=== PATIENT | male | born 1965 | race Caucasian/White ===

== ENCOUNTER 2017-10-07 06:52 | Emergency (ER) | payer OTHER ==
[2017-10-07 07:06] VITALS: BP 155/95; PULSE 86; TEMP 99.1; BMI 40.6
--- NOTE | 2017-10-07 07:21 | PDOC ---
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 PT presents to the ER stating that he has left arm tingling, warmth He went to bed last night at midnight, he awoke at 3am. When he woke up, his left arm was hanging off the bed and he noted left arm tingling He didn't want to leave the house immediately but monitored the tingling/ burning Although his symptoms have improved substantially, he still does note left arm sensory changes He has noted no weakness, no facial asymmetry, no slurring of his speech, no extremity weakness, no uncoordination, PMH: Hypertension CVA 2001(he was told that it was a "bleed") PSH: Tonsillectomy, Adenoidectomy Hernia repair Meds: Amlodipine Besylate [Norvasc] mg PO DAILY Amoxicillin - [Amoxil] 875 mg PO BID Metoprolol Succinate [Toprol XL] mg PO DAILY Oxycodone HCl/Acetaminophen [Percocet 5/325 -] 1 combo PO Q6H PRN #10 tablet Prednisone [Deltasone] mg PO DAILY Valsartan [Diovan] mg PO DAILY ALL: NKDA Social: denies tobacco use, drug use PMD: Dr Forde ROS: GENERAL/CONSTITUTIONAL: No: fever, chills, weakness, loss of appetite. HEAD, EYES, EARS, NOSE AND THROAT: No: change in vision, ear pain, discharge, sore throat, throat swelling. CARDIOVASCULAR: No: chest pain, lightheadedness, palpitations, syncope RESPIRATORY: No: cough, shortness of breath, wheezing, hemoptysis, stridor. GASTROINTESTINAL: No: nausea, vomiting, diarrhea, abdominal cramping, rectal bleeding, constipation. GENITOURINARY: No: dysuria, hematuria, frequency, urgency, flank pain. MUSCULOSKELETAL: No: back pain, neck pain, joint pain, muscle swelling or pain SKIN: No: lesions, pallor, rash or easy bruising. NEUROLOGIC: Yes: paresthesias left arm No: headache, vertigo, weakness ENDOCRINE: No: unexplained weight gain or loss HEMATOLOGIC/LYMPHATIC: No: anemia, easy bleeding, swelling nodes. PE: GENERAL: The patient is in no acute distress. HEAD: Normal with no signs of trauma. EYES: PERRLA, EOMI, sclera anicteric, conjunctiva clear. ENT: Ears normal, nares patent, oropharynx clear without exudates. Moist mucous membranes. NECK: Normal range of motion, supple without lymphadenopathy, JVD, or masses. LUNGS: Breath sounds equal, clear to auscultation bilaterally. No wheezes, and no crackles. HEART:Regular rate and rhythm, normal S1 and S2 without murmur, rub or gallop. ABDOMEN: Soft, nontender, normoactive bowel sounds. No guarding, no rebound. No masses palpable. EXTREMITIES: Normal range of motion, no edema. NEUROLOGICAL: Please see NIHSS MUSCULOSKELETAL: Back non-tender to palpation SKIN: Warm, Dry, normal turgor, no rashes or lesions noted. tPA Exclusion checklist 3-4.5h - Time Elapsed Date last known well: 10/07/17 Time last known well: 00:00 Elaspsed time: Day(s) and 9 Hour(s) and 55 Minutes - Thrombolytic Therapy Candidate Is patient eligible for thrombolytic therapy: No - Exclusion Criteria 3-4.5 hr SBP greater than 185 or DBP greater than 110mmHg despite tx: No Recent IC/spinal surgery,head trauma or stroke<3mos.: No Hx IC hemorrhage, IC neoplasm, AV malformation or aneurysm: No Active internal bleeding: No Blding diathesis(low plt ct, inc PTT,INR>1.7 or use of NOAC): No Symptoms suggest subarachnoid hemorrhage: No CT demonstrates multilobar infarct(>1/3 cerebral hemiphere): No Arterial puncture at noncompressible site in previous 7 days: No Blood glucose concentration less than 50mg/dL (2.7mmol/L): No - Relative Exclusion Criteria 3-4.5 hr Life expectancy <1 yr or severe co-morbid illness: No : No Patient/family refused: No Rapid improvement: Yes Stroke severity too mild: Yes Recent acute [place] (w/in previous 3 months): No Seizure at onset with postictal residual neuro impairments: No Major surgery or serious trauma w/in previous 14 days: No Recent GI or hemorrhage (w/in previous 21 days): No - Add'l Relative Exclusion 3-4.5 hr Age > 80: No Hx of both diabetes AND prior ischemic stroke: No Taking an oral anticoagulant regardless of INR: No NIHSS >25: No - Ineligibility reason(s) Reasons No tPA given: Outside of window - delayed arrival NIH Stroke Scale - Last Known Well Date/Time & Onset Date Last Known Well: 10/07/17 Time Last Known Well: 00:00 - Initial Evaluation Level of consciousness: Alert Ask patient the month and their age: Answers both correctly Ask patient to open & close eyes; make fist and let go: Obeys both correctly Best gaze (horizontal eye movement): Normal Visual field testing: No visual field loss Facial paresis (Show teeth/raise eyebrows/close eyes tight): Normal symmetrical movement Motor Function: Left Arm: Normal Motor Function: Right Arm: Normal (extends arm 90 (or 45) degrees for 10 seconds without drift Motor Function: Left Leg: Normal (extends leg 30 degrees for 5 seconds without drift) Motor Function: Right Leg: Normal (extends leg 30 degrees for 5 seconds without drift) Limb Ataxia: No ataxia Sensory(Use pinprick test arms,legs,trunk,face/side to side): Normal Best language (Describe picture, name items, read sentences): No Aphasia Dysarthria (read several words): Normal articulation Extinction and Inattention: No abnormality - Total Score NIH Stroke Scale Score: 0 Past History - Past Medical History Allergies/Adverse Reactions: Allergies Allergy/AdvReac Type Severity Reaction Status Date / Time No Known Allergies Allergy Unverified 05/20/12 17:49 Home Medications: Ambulatory Orders Amlodipine Besylate [Norvasc] 10 mg PO DAILY 05/20/12 Metoprolol Succinate [Toprol XL] 100 mg PO DAILY 05/20/12 Valsartan/Hydrochlorothiazide [Valsartan-Hctz 80-12.5 mg Tab] 1 each PO DAILY CVA: Yes (10 YRS AGO) COPD: No HTN: Yes - Suicide/Smoking/Psychosocial Hx Smoking Status: Yes Smoking History: Former smoker Years of Tobacco Use: 10 Have you smoked in the past 12 months: No Number of Cigarettes Smoked Daily: 20 Information on smoking cessation initiated: No Hx Alcohol Use: No Drug/Substance Use Hx: No Substance Use Type: None Hx Substance Use Treatment: No *Physical Exam - Vital Signs Last Vital Signs Temp Pulse Resp BP Pulse Ox 99.1 F 86 16 155/95 97 10/07/17 07:00 10/07/17 07:00 10/07/17 07:00 10/07/17 07:00 10/07/17 07:00 ED Treatment Course - LABORATORY CBC & Chemistry Diagram: 10/07/17 08:11 10/07/17 08:11 Medical Decision Making - Medical Decision Making 10/07/17 07:54 Mr. Bean is a 52-year-old male with a history of hypertension, obesity who presents emergency department with paresthesias of the left upper extremity. He will with these symptoms, did fine his arm in a hyperextended position. His symptoms have improved over the course of the morning. Patient's concern is because he's had a prior CVA. On examination: Patient is an IHSS is 0. Patient's motor function is normal. Sensation is intact in all extremities No dysdiadochokinesis, no dysmetria. Diagnosis includes but is not limited to: CVA, TIA, upper extremity palsy Will do CT of head given patient's history. Will do labs. Will contact Neurology consult 10/07/17 07:57 EKG: SR rate of 75 bpm, axis nml, no t elevations or depressions, t waves biphasic [id number] 10/07/17 08:[address] to be read 10/07/17 08:32 CT still not read Laboratory Tests 10/07/17 10/07/17 10/07/17 08:11 08:11 08:11 WBC 12.3 H D Hgb 14.8 Hct 42.8 Plt Count 320 Neutrophils % (Manual) 79.0 Band Neutrophils % 3.0 Lymphocytes % (Manual) 12.0 Monocytes % (Manual) 5 INR 1.16 Sodium 136 Potassium 2.9 L* D Chloride 98 Carbon Dioxide 29 H Anion Gap 9 BUN 18 Creatinine 1.0 Random Glucose 155 H AST 53 H D ALT 56 H Creatine Kinase Troponin I Urine Urobilinogen Ur Leukocyte Esterase Urine RBC Urine WBC Ur Epithelial Cells 10/07/17 10/07/17 10/07/17 08:11 08:11 08:52 WBC Hgb Hct Plt Count Neutrophils % (Manual) Band Neutrophils % Lymphocytes % (Manual) Monocytes % (Manual) INR Sodium Potassium Chloride Carbon Dioxide Anion Gap BUN Creatinine Random Glucose AST ALT Creatine Kinase 56 Troponin I < 0.03 Urine Urobilinogen 0.2 Ur Leukocyte Esterase Trace H Urine RBC 0-1 Urine WBC 5-8 Ur Epithelial Cells Few CT read as no acute CVA 10/07/17 09:[address] Mackey He recommends Neuro Follow up, MRI, Carotids, ECHO 10/07/17 09:57 Case reviewed with PMD He recommends discharge to home Asks that patient come to the office on Tuesday Requests that pt be given an extra dose of his troprol Clinical Impression: Left Arm Paresthesias, initial presentation 10/07/17 10:02 *DC/Admit/Observation/Transfer Diagnosis at time of Disposition: Arm paresthesia, left - Discharge Dispostion Disposition: HOME Condition at time of disposition: Stable Decision to Admit order: No - Referrals Referrals: Tomas Rodriguez MD [Primary Care Provider] - Benedict Mackey MD [Staff Physician] - - Patient Instructions Printed Discharge Instructions: DI for Numbness/tingling Additional Instructions: Mr Bean Thank you for coming into the emergency department today. Please be sure to follow-up with your primary care physician on TuesdayOctober 10. You can also call today for an appointment with Dr. mackey (the neurologist) He will need further testing-MRI, possibly carotid ultrasound, possibly an echocardiogram. Please keep a copy of your labs as well as EKG with you Please feel free to return to the emergency department for any new symptoms, worsening symptoms, any other concerns or complaints. - Post Discharge Activity Forms/Work/School Notes: Back to Work
[2017-10-07] MEDS ORDERED: SODIUM CHLORIDE 1,000 ML IV SCH (07:45)
[2017-10-07 08:34] LABS: HEMOGLOBIN 14.8 GM/dl (11.7-16.9)
[2017-10-07 08:37] LABS: HEMATOCRIT 42.8 % (35.4-49); MCH 30.3 pg (25.7-33.7); MCHC 34.6 g/dl (32.0-35.9); MEAN CELL VOLUME 87.7 fl (80-96); MEAN PLT VOLUME 9.4 fl (7.5-11.1); PLATELET COUNT 320 K/MM3 (134-434); RBC 4.89 M/mm3 (4.00-5.60); RDW 13.1 % (11.9-15.9); WHITE BLOOD COUNT 12.3 K/mm3 (4.0-10.8)
[2017-10-07 08:39] LABS: ADD RBC MORPHOLOGY YES
[2017-10-07 08:48] LABS: INR 1.16 (0.82-1.09); PROTHROMBIN TIME (PATIENT) 12.9 SEC (10.2-13.0)
[2017-10-07 08:50] LABS: ALBUMIN 4.2 g/dl (3.5-5.0); ALK PHOS 79 U/L (32-92); ANION GAP 9 (8-16); BILIRUBIN,TOTAL 0.8 mg/dl (0.2-1.0); BLOOD UREA NITROGEN 18 mg/dl (7-18); CALCIUM 9.1 mg/dl (8.4-10.2); CHLORIDE 98 mmol/L (98-107); CHOLESTEROL 141 mg/dl; CO2 29 mmol/L (22-28); GLUCOSE,RANDOM 155 mg/dl (74-106); HDL CHOLESTEROL 33 mg/dl (29-89); SGOT/AST 53 U/L (10-42); SGPT/ALT 56 U/L (10-40); SODIUM 136 mmol/L (136-145); TOT PROT 8.1 g/dl (6.4-8.3); TRIGLYCERIDES 54 mg/dl (35-160)
[2017-10-07 09:01] LABS: PH,URINE 6.5 (4.5-8); URINE APPEARANCE Clear; URINE BILIRUBIN Negative (NEGATIVE); URINE BLOOD Negative (NEGATIVE); URINE GLUCOSE (UA) Negative (NEGATIVE); URINE KETONE Negative (NEGATIVE); URINE NITRITE Negative (NEGATIVE); URINE PROTEIN Trace (NEGATIVE); URINE UROBILINOGEN 0.2 (0.2-1.0)
[2017-10-07 09:02] LABS: URINE COLOR AMBER; URINE LEUK ESTERASE TRACE (NEGATIVE)
[2017-10-07 09:09] LABS: POTASSIUM 2.9 mmol/L (3.5-5.1)
[2017-10-07] MEDS ORDERED: POTASSIUM CHLORIDE TABS 20 MEQ TABLET.ER (FP) PO ONE ×2 (09:09→09:35)
[2017-10-07 09:20] LABS: PLATELET ESTIMATE ADEQUATE
[2017-10-07 09:29] LABS: EPI CELLS FEW /HPF; URINE RBC 0-1 /hpf (0-3)
--- NOTE | 2017-10-08 14:47 | EKG ---
Test Reason : Blood Pressure : / mmHG Vent. Rate : 075 BPM Atrial Rate : 075 BPM P-R Int : 156 ms QRS Dur : 094 ms QT Int : 400 ms P-R-T Axes : 054 -17 -03 degrees QTc Int : 446 ms NORMAL SINUS RHYTHM MINIMAL VOLTAGE CRITERIA FOR LVH, MAY BE NORMAL VARIANT BORDERLINE ECG WHEN COMPARED WITH ECG OF 18-JAN-2008 08:02, NO SIGNIFICANT CHANGE WAS FOUND Confirmed by MD Robin, Salty ([id number]) on 10/08/2017 2:46:59 PM Referred By: ALLAN ONTIVEROS Confirmed By:Salty Kelly MD
== END 2017-10-07 10:20 | disposition home or self-care (01) ==
LOC: FER 06:52
DX: R20.2 Paresthesia of skin (principal); Z87.891 Personal history of nicotine dependence; I10 Essential (primary) hypertension; Z86.73 Personal history of transient ischemic attack (TIA), and cerebral infarction without residual deficits; E66.9 Obesity, unspecified; Z68.41 Body mass index [BMI] 40.0-44.9, adult
CPT/HCPCS: 36415; 70450-TC; 80053; 81003; 81015; 82465; 82550; 83718; 83721; 84478; 84484; 85025; 85610; 86850; 86900; 86901; 93005; 99284-25; J7030